=== PATIENT | male | born 1945 | race Caucasian/White ===

== ENCOUNTER 2021-02-23 04:07 | Day surgery (SDC) | payer OTHER ==
[2021-02-21 12:17] VITALS: BMI 33.1
[2021-02-23] MEDS ORDERED: LIDOCAINE HCL 1%, 10 MG/ML (20ML VIAL) ONE (08:55)
[2021-02-23] MEDS ORDERED: BUPIVACAINE HCL/PF 0.5% (5MG/ML) 10 ML VIAL ONE (08:55)
[2021-02-23] MEDS ORDERED: BUPIVACAINE HCL/PF 0.5% (5MG/ML) 10 ML VIAL IJ ONE (09:21)
[2021-02-23] MEDS ORDERED: LIDOCAINE HCL 1%, 10 MG/ML (20ML VIAL) INF ONE (09:21)
[2021-02-23 11:41] VITALS: BP 140/75; PULSE 67; TEMP 98.6
== END 2021-02-23 11:50 | disposition home or self-care (01) ==
LOC: JASU-SURG 04:07
PROVIDERS: ATTEND Podiatrist
PROC: 0JBR0ZZ Excision of Left Foot Subcutaneous Tissue and Fascia, Open Approach (ICD-10-PCS; principal; 2021-02-23 09:00)
DX: M67.472 Ganglion, left ankle and foot (principal)
CPT/HCPCS: 73630-TC-LT